=== PATIENT | male | born 1975 | race Caucasian/White ===

== ENCOUNTER 2018-11-14 10:17 | Observation (INO) | payer SELFPAY ==
[2018-11-14] VITALS (14 sets, daily range): BP systolic 115–137; BP diastolic 73–89; PULSE 78–110; RESP 14–20; TEMP 36.5–37.2; O2SAT 96–100; BMI 23.4; BMI 23.1
--- NOTE | 2018-11-14 10:23 | RAD_ITS ---
STUDY: X-RAY CHEST REASON FOR EXAM: Male, 43 years old. Chest pain TECHNIQUE: Single AP portable view of the chest. COMPARISON: None. FINDINGS: The lungs are clear and expanded. There is no demonstrated pleural abnormality. Normal size heart. Normal mediastinum and salvador. Normal visualized pulmonary arteries. Normal visualized aortic arch and descending thoracic aorta. Normal visualized thoracic spine. Normal visualized ribs, clavicles, and shoulders. There is no demonstrated abnormality of the visualized soft tissue structures of the upper abdomen. RAD/Chest 1 View (Portable) IMPRESSION: Normal x-ray examination of the chest. Electronically Signed: Hernesto Zazueta MD at 11:34 EDT Tel , Service support ,
--- NOTE | 2018-11-14 10:23 | EKG12_ITS ---
Test Reason : CP Blood Pressure : / mmHG Vent. Rate : 094 BPM Atrial Rate : 094 BPM P-R Int : 132 ms QRS Dur : 090 ms QT Int : 352 ms P-R-T Axes : 067 090 069 degrees QTc Int : 440 ms Normal sinus rhythm with sinus arrhythmia Rightward axis Low Voltage QRS (Limb Leads) Borderline ECG Confirmed by ANUJ KIDD, KINA ([id number]), scientific editor NAHEED LAWRENCE ([id number]) on 11/17/2018 3:15:37 PM Referred By: Azeem López Confirmed By:KINA LESLIE MD
--- NOTE | 2018-11-14 10:51 | ED.VIS.GEN ---
History of Present Illness Chief Complaint: Chest Pain Informant: Patient Onset: Today Context: Sudden Onset Timing: Continuous Current Severity: Moderate Maximum Severity: Moderate Narrative: The patient presents to the emergency department chest pain. He states he was in his normal state of health. He states he began to have left-sided chest tightness, shortness of breath, nausea. It radiated to his left arm. The patient does have a history of prior CO 5 years ago. He states he has 3 stents. He stopped following up with cardiology about 3 years ago. He only takes baby aspirin. He does smoke. He states he is been under significant amount of stress lately. He denies any recent exertional symptoms. Prior similar symptoms: Yes Recent Illness/Hospitalization: No Past Medical History - Allergies and Home Meds Allergies/Adverse Reactions: Allergies No Known Allergies Allergy (Verified 11/14/18 10:17) Prior records reviewed: Yes Past Medical History: - - Prior CO with stents Smoking Status: Current every day smoker Review of Systems General: Denies: Chills, Fever, Sweats Eyes: Denies: Visual changes - bilaterally, Diplopia ENT: Denies: Rhinorrhea, Sore throat Cardiovascular: Reports: Chest pain. Denies: Palpitations Respiratory: Denies: Dyspnea, Cough, Dyspnea on exertion Gastrointestinal: Denies: Abdominal pain, Nausea, Vomiting, Diarrhea, Melena, Hematochezia Genitourinary: Denies: Dysuria, Hematuria, Frequency Musculoskeletal: Denies: Back pain, Extremity Pain Skin: Denies: Rash, Wounds Neurological: Denies: Headache, Weakness, Numbness Physical Exam Vital Signs/Narrative: Vital Signs Temp Pulse Resp BP Pulse Ox 11/14/18 10:18 98.0 F 103 H 14 131/89 H 99 11/14/18 10:17 86 19 H Inital Vital Signs reviewed: Yes General: Well nourished, Well developed, No Acute Distress Head: Normocephalic, Atraumatic Eyes: Perrl, EOMI ENT: Moist mucous membranes, No rhinorrhea Neck: Supple, Nontender Cardiovascular: Regular rate, Regular rhythm, No murmurs Respiratory: No distress, CTA bilaterally, Chest nontender Abdomen: Soft, Nontender, Nondistended, Normal bowel sounds Back: Nontender, Normal Inspection Extremities: Nontender, No edema Skin: Normal color, No rash Neurological: Alert, Oriented x3, Cranial nerves II-XII grossly intact, Normal Strength, Normal Sensation Psychological: Normal affect, Normal Mood Diagnostic/Tx/Re-eval Chest X-Ray - ED: 1 View, 2 View, Read by ED Physician, Normal, Heart, Lungs, Mediastinum Clinical Impression(s) from Imaging Studies Chest X-Ray 11/14/18 10:23 IMPRESSION: Normal x-ray examination of the chest. Electronically Signed: Hernesto Zazueta MD at 11:34 EDT Tel , Service support , Abnormal Lab Results 11/14/18 11/14/18 10:40 10:40 WBC 10.0 RBC 5.52 Hgb 17.1 H Hct 50.4 MCV 91.3 MCH 31.0 MCHC 33.9 RDW Std Deviation 46.5 H RDW Coeff of Bravo 13.7 Plt Count 228 MPV 9.3 Immature Gran % (Auto) 0.500 Neut % (Auto) 75.6 H Lymph % (Auto) 13.3 L Putnam % (Auto) 7.9 Eos % (Auto) 2.0 Baso % (Auto) 0.7 Absolute Neuts (auto) 7.5 Absolute Lymphs (auto) 1.32 Nucleated RBC % 0 Sodium 138 Potassium 4.3 Chloride 107 Carbon Dioxide 28.0 Anion Gap 3 L BUN 6 L Creatinine 1.01 Estim Creat Clear Calc 85.10 Est GFR (MDRD) Af Amer 104 Est GFR (MDRD) Non-Af 86 BUN/Creatinine Ratio 5.9 L Glucose 106 Calcium 8.8 Troponin I < 0.015 - Rhythm Strip Rhythm Strip: Sinus Rhythm Rate: 90 Ectopy: None - EKG Initial EKG Interpretation: Sinus Rhythm, No Acute Injury Pattern Prior: No Prior - Medical Decision Making The patient presents with chest pain. He has been under significant amount of stress lately. His EKG does not show any evidence of acute ischemia. Patient was given aspirin and nitro. He did have improvement of his pain. Screening labs including cardiac enzymes are normal. The patient's history of prior CO and chest pain I do feel that he would benefit from a cardiac rule out. Patient was discussed with the hospitalist will be admitted for this time. Impression 1. Chest pain ED Disposition - Plan for ED Patient: Disposition: Home or Assisted Living
[2018-11-14 10:52] LABS: Absolute Lymphocyte Count 1.32 X10^3/uL (0.83-4.51); Absolute Neutrophil Count 7.5 X10^3/uL (2.0-7.7); Basophil# 0.07 X10^3/uL; Basophil% 0.7 % (0-1); Hematocrit 50.4 % (40-54); Hemoglobin 17.1 g/dL (13.0-16.5); Lymphocyte # 1.32 X10^3/ul (4.0); Lymphocyte % 13.3 % (19-41); Mean Corp Hgb Conc 33.9 g/dL (32-36); Mean Corpuscular Volume 91.3 fL (80-94); Mean Platelet Vol. 9.3 fl (6.2-12.0); Monocyte# 0.79 X10^3/uL; Monocyte% 7.9 % (0-10); NRBC Flagged by Analyzer 0 % (0-5); Neutrophil # 7.52 X10^3/uL (2.7-7.7); Neutrophil % 75.6 % (47-70); Platelet Count 228 K/mm3 (150-450); RBC Distribution Width CV 13.7 % (11.6-14.6); RBC Distribution Width SD 46.5 fl (35.1-43.9); Red Blood Count 5.52 M/mm3 (4.6-6.2)
[2018-11-14 11:10] LABS: Anion Gap 3 (5-15); BUN 6 mg/dL (7-18); BUN/Creat Ratio 5.9 RATIO (10-20); Calcium,Total 8.8 mg/dL (8.5-10.1); Chloride 107 mmol/L (98-107); Creatinine, Serum 1.01 mg/dL (0.70-1.30); EST Glomerular Filtration Rate 86 mL/min (>60); Est Glom Filt Rate - Afr Amer 104 mL/min (>60); Glucose 106 mg/dL (74-106); Potassium 4.3 mmol/L (3.5-5.1); Sodium Level 138 mmol/L (136-145)
[2018-11-14] MEDS: Aspirin 81 MG TAB.CHEW 324 MG PO (11:20)
[2018-11-14] MEDS: Nitroglycerin SL (ED/IMG/CATH) 0.4 MG TABLET SUBLINGUAL ×3 (11:22→11:32)
[2018-11-14] MEDS: 0.9% Normal Saline 1,000 ML 150 ML IV (11:28)
--- NOTE | 2018-11-14 11:46 | NURSING ---
BETHANYU OBS MARY ALEJANDRA
--- NOTE | 2018-11-14 12:37 | ED.RN ---
pt hal concerned that pt needs to see medical social consultant. Pt in agreement. Dr. Sheets notified.
--- NOTE | 2018-11-14 13:25 | EKG12_ITS ---
Test Reason : Blood Pressure : / mmHG Vent. Rate : 075 BPM Atrial Rate : 075 BPM P-R Int : 126 ms QRS Dur : 082 ms QT Int : 364 ms P-R-T Axes : 056 087 060 degrees QTc Int : 406 ms Normal sinus rhythm Normal ECG When compared with ECG of 14-NOV-2018 10:18, MANUAL COMPARISON REQUIRED, DATA IS UNCONFIRMED Confirmed by STEFAN KIDD, ANA PAULA ([id number]), book or script editor NAHEED LAWRENCE ([id number]) on 11/25/2018 10:41:49 AM Referred By: Azeem López Confirmed By:VASQUEZ AVILES MD
--- NOTE | 2018-11-14 17:30 | NURSING ---
Patient reports that he spoke with his fiance and her mother about going home instead of staying and feels that he is okay for discharge. Informed Dr. López of same. Dr. López spoke with patient concerning same. Patient did decide to stay and have stress test in the morning.
--- NOTE | 2018-11-14 19:33 | PCM.HP.STD ---
Problem List (1) Chest pain Status: Acute Qualifiers: Chest pain type: precordial pain Qualified Code(s): R07.2 - Precordial pain History of Present Illness Date of Admission: 11/14/18 Chief Complaint: chest pain The patient is a 43 year old M was seen and examined in the ER at [facility] with complaints of chest pain, this chest pain started earlier this morning while he was at rest, he described the chest pain as a pressure-like feeling, he did not tell this examiner it radiated into his neck or down his arm. 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 Patient states that he was never told he had significant damage from his ME, he quit following up with cardiology approximately 2 years ago, he also stated that he went off his prescribed medications because I felt better off the medications-patient states that he continue to take a baby aspirin a day. Patient denied any nausea, shortness of breath, or diaphoresis today. He states he was given a total of 3 nitroglycerin today which finally made his chest pain go away. Work-up in the emergency room included labs which showed a normal troponin, EKG showed no evidence of any ST-T wave elevation, chest x-ray was normal. Patient was placed in observation status on PCU, cardiac enzymes will be cycled, if they remain negative he will undergo an exercise nuclear stress test tomorrow morning. Patient states that if he has a positive stress test, he is not sure that he wants to stay in the hospital, he states that he would consider being discharged home and having an outpatient work-up. I also talked with the patient concerning his lack of taking cardiac medications as an outpatient, I recommended that he take a small dose of the statin as well as a small dose of the beta-jesica which he seemed to agree with. Additional note: After patient arrived in PCU, later on this afternoon, he told nursing that he preferred to be discharged home and do an outpatient work-up for his chest pain, I went back in and had a discussion with him about this decision and he changed his mind and agreed to stay and have his stress test performed. Past Medical History Allergies No Known Allergies Allergy (Verified 11/14/18 10:17) Home Medications: Ambulatory Orders Medication Instructions Recorded Aspirin E.C. [Ecotrin] 81 mg PO DAILY@0800 04/12/16 Multivitamin [Once Daily] 1 ea PO DAILY 11/14/18 Surgical History: herniorrhaphy, tonsillectomy, - - Insertion of 3 coronary artery stents 2014 Psychiatric History: No pertinent psych hx Lives: Spouse/ Significant Other Smoking Status: Current every day smoker Tobacco Use: Cigarettes Alcohol: None Drugs: None - *Family History Maternal History Items: - - Pancreatitis Paternal History Items: No pertinent history Review of Systems Constitutional: Denies: Anorexia, Chills, Fever, Night Sweats, Weakness, Weight Change Eyes: Denies: Blurred vision, Cataracts, Conjunctivae Inflammation, Double vision, Drainage HEENT: Denies: Difficulty Swallowing, Dysphasia, Ear Pain, Eye Pain, Hearing Changes, Nasal bleeding, Nasal Congestion, Post Nasal Drip Cardiovascular: Reports: Chest Pain, Chest Pressure, Heaviness. Denies: Claudication, Chest Tightness, Edema, Orthopnea, Palpitations, Paroxysmal Noc. Dyspnea Respiratory: Denies: Cough, Hemoptysis, Pleuritic Pain, Shortness of Breath, Shortness of breath at rest, Shortness of breath upon exertion, Sputum production Gastrointestinal: Denies: Abdominal Pain, Constipation, Diarrhea, Hematemesis, Hematochezia, Nausea, Melena, Vomiting Genitourinary: Denies: Dysuria, Frequency, Hematuria, Hesitancy, Incontinence, Nocturia, Urgency Musculoskeletal: Denies: Back Pain, Foot Pain, Hand Pain, Joint Pain, Joint stiffness, Joint swelling, Joint Tenderness, Leg Pain Skin: Denies: Dryness, Jaundice, Pruritis, Rash Neurological: Denies: Blurred vision, Double vision, Change in Speech, Slurred speech, Difficulty swallowing, Focal weakness, Headaches, Incoordination, Numbness, Tingling Psychiatric: Denies: Anxiety, Depression, Homicidal Ideations, Suicidal Ideations Endocrine: Denies: Change in Body Habitus, Heat/ Cold Intolerance, Polydipsia, Polyuria, Hx of Irradiation Hematologic/ Lymphatic: Denies: Adenopathy, Anemia, Easy Bruising, Easy Bleeding, Petechiae, Purpura VTE Information - Inpt Only VTE Present on Admission: No VTE Mechan Device Prophylaxis: None VTE Pharm Prophylaxis ordered?: No Reason prophylaxis not ordered:: Treatment Not Indicated Patient Problems: Active and Suspected Problems Chest pain (Acute) - Physical Exam General: Alert, Oriented x3, Cooperative, No apparent distress, Well developed HEENT: Atraumatic, PERRLA, EOMI, Normocephalic Oral: Moist Mucosa Neck: Supple, No JVD, Negative Carotid Bruits, Trachea Midline, Thyroid Normal Size and Texture Lungs: Clear to auscultation, Normal air movement, No rhonchi, No wheeze Cardiovascular: Regular rate, Regular Rhythm, Normal S1, Normal S2, No murmurs, PMI Normal, No rub noted Abdomen: Bowel Sounds Present, Soft, Non Tender, Non-Distended Extremities: No clubbing, No cyanosis, No edema, Capillary Refill Less than 3 Seconds Skin: No rashes, No breakdown Musculoskeletal: No Tenderness to Palpation of Joints or Extremities Neurological: Cranial nerves II-XII grossly intact, Neuro grossly intact, Sensory exam intact to light touch and pain, Coordination normal Psych/Mental Status: Normal Affect, Appropriate, Alert and oriented to time, place, person, mood and affect Vital Signs Temp Pulse Resp BP Pulse Ox 97.7 F L 80 16 115/88 H 96 11/14/18 17:38 11/14/18 19:09 11/14/18 17:38 11/14/18 17:38 11/14/18 17:38 Oxygen Flow Rate (L/min) 1 Oxygen Delivery Method Room Air Weight: 64.9 kg Body Mass Index (BMI) 23.1 Intake and Output for Last 24 Hours 11/12/18 11/13/18 11/14/18 23:59 23:59 23:59 Intake Total 442.5 / 442.5 Balance 442.5 / 442.5 Laboratory Tests Past 24 Hrs 11/14/18 11/14/18 11/14/18 10:40 10:40 13:50 WBC 10.0 RBC 5.52 Hgb 17.1 H Hct 50.4 MCV 91.3 MCH 31.0 MCHC 33.9 RDW Std Deviation 46.5 H RDW Coeff of Bravo 13.7 Plt Count 228 MPV 9.3 Immature Gran % (Auto) 0.500 Neut % (Auto) 75.6 H Lymph % (Auto) 13.3 L Tift % (Auto) 7.9 Eos % (Auto) 2.0 Baso % (Auto) 0.7 Absolute Neuts (auto) 7.5 Absolute Lymphs (auto) 1.32 Nucleated RBC % 0 Sodium 138 Potassium 4.3 Chloride 107 Carbon Dioxide 28.0 Anion Gap 3 L BUN 6 L Creatinine 1.01 Estim Creat Clear Calc 85.10 Est GFR (MDRD) Af Amer 104 Est GFR (MDRD) Non-Af 86 BUN/Creatinine Ratio 5.9 L Glucose 106 Calcium 8.8 Troponin I < 0.015 < 0.015 11/14/18 16:44 WBC RBC Hgb Hct MCV MCH MCHC RDW Std Deviation RDW Coeff of Bravo Plt Count MPV Immature Gran % (Auto) Neut % (Auto) Lymph % (Auto) Tift % (Auto) Eos % (Auto) Baso % (Auto) Absolute Neuts (auto) Absolute Lymphs (auto) Nucleated RBC % Sodium Potassium Chloride Carbon Dioxide Anion Gap BUN Creatinine Estim Creat Clear Calc Est GFR (MDRD) Af Amer Est GFR (MDRD) Non-Af BUN/Creatinine Ratio Glucose Calcium Troponin I < 0.015 Assessment/Plan All Active Problems Chest pain (Acute) #1 Chest pain in a patient with known coronary disease-he will be placed in the observation status on PCU, he will undergo an exercise nuclear stress test tomorrow if his enzymes remain negative. #2 noncompliance with medical regimen-I discussed this at length with the patient, I will prescribe medications at the time of discharge #3 coronary artery disease with history of coronary artery stents Code Visit OBSV E&M: 04239 Initial observation care L3
[2018-11-15 02:51] VITALS: PULSE 71
[2018-11-15 03:28] VITALS: BP 111/74; PULSE 70; RESP 18; TEMP 37.1; O2SAT 97
--- NOTE | 2018-11-15 05:55 | EKG12_ITS ---
Test Reason : AM EKG Blood Pressure : / mmHG Vent. Rate : 076 BPM Atrial Rate : 076 BPM P-R Int : 136 ms QRS Dur : 084 ms QT Int : 340 ms P-R-T Axes : 061 085 052 degrees QTc Int : 382 ms Normal sinus rhythm Normal ECG When compared with ECG of 14-NOV-2018 12:54, MANUAL COMPARISON REQUIRED, DATA IS UNCONFIRMED Confirmed by STEFAN KIDD, ANA PAULA ([id number]), clinical editor NAHEED LAWRENCE ([id number]) on 11/25/2018 10:42:17 AM Referred By: Azeem López Confirmed By:VASQUEZ AVILES MD
[2018-11-15 06:44] VITALS: BP 117/69; PULSE 78; RESP 18; TEMP 36.7; O2SAT 96
[2018-11-15 07:01] VITALS: PULSE 78
[2018-11-15 07:36] LABS: Cholesterol 191 mg/dL (200); High Density Lipoprotein 37 mg/dL; Triglycerides 80 mg/dL; Very Low Density Lipoprotein 16 mg/dL (5-40)
[2018-11-15 11:03] VITALS: BP 120/80; PULSE 90; RESP 18; TEMP 36.7; O2SAT 97
--- NOTE | 2018-11-15 11:21 | PCM.DC ---
- Discharge Diagnoses Current Active Problems: Current Active and Chronic Problems Chest pain (Acute) You will use the following diet at home:: No restrictions Your food should be the consistency of: Regular Your liquids should be the consistency of: Regular/Thin Discharge Activity: Return to Normal Activity Weight Bearing Status: Full weight bearing Additional Instructions: AVOID SMOKING Allergies/Adverse Reactions: Allergies No Known Allergies Allergy (Verified 11/14/18 10:17) Medications to take at Discharge Aspirin E.C. [Ecotrin] 81 mg PO DAILY@0800 04/12/16 Multivitamin [Once Daily] 1 ea PO DAILY 11/14/18 Atorvastatin Calcium [Lipitor] 20 mg PO DAILY #30 tab 11/15/18 Carvedilol 3.125 mg PO BID #60 tab 11/15/18 The following prescriptions were given: Carvedilol 3.125 mg PO BID #60 tab Prescription Printed Atorvastatin Calcium [Lipitor] 20 mg PO DAILY #30 tab Prescription Printed Primary Care Physician: Zelalem Wong DO [Primary Care Provider] - Please follow up with your Primary Care Physician in: IN 2 WEEKS Test Results: Test results from this visit will be discussed in further detail at your follow-up appointment, if applicable. Please Follow Up With: YOUR COMMUNITY SERVICE SPECIALIST When: IN 2 WEEKS
--- NOTE | 2018-11-15 11:58 | STRESSREP_ITS ---
Stress Test Report Date: 11-15-18 Procedure: Exercise tolerance test/imaging study Indications: Chest pain; CAD; PCI Consent: Per the patient Procedure: The patient exercised on a Erick protocol for 12 minutes completing Stage IV achieving a peak heart rate of 187 bpm (105 % predicted maximal heart rate) with a peak blood pressure 172/60 mmHg and a peak MET capacity of 13 METs. The baseline ECG demonstrated normal sinus rhythm. The peak exercise ECG demonstrated no obvious ECG changes. There was a rare PVC/ventricular couplet during exercise. The functional capacity was considered good. There was no complaint of chest discomfort during exercise or recovery. The examination was discontinued secondary to leg discomfort. Impression: 1. Technically adequate (percent predicted maximal heart rate greater than 85%) exercise tolerance test 2. Peak exercise ECG with no obvious ECG changes 3. There was a rare PVCs/ventricular couplet during exercise 4. Nuclear images pending Myocardial perfusion imaging study: Technique: The patient was injected with 12.0 mCi of technetium 99m Cardiolite and subsequently rest SPECT Cardiolite nuclear imaging was obtained in the horizontal long, vertical long, and short axis views. The patient exercised on a Erick protocol for 12 minutes completing Stage IV achieving a peak heart rate of 187 bpm (105 % predicted maximal heart rate) with a peak blood pressure 172/60 mmHg and a peak MET capacity of 13 METs. The patient was injected with 36.0 mCi of technetium 99m Cardiolite and subsequently stress SPECT Cardiolite nuclear imaging was obtained in the horizontal long, vertical long, and short axis views. A gated Cardiolite study at peak stress was obtained. Interpretation: Rest and stress SPECT Cardiolite nuclear imaging status post realignment, normalization, and attenuation correction, demonstrates the appearance of relative uniform tracer uptake and myocardial perfusion appearing within normal limits. There is end systolic thickening and brightening. The gated Cardiolite study demonstrates myocardial thickening and inward wall motion. The reported LVEF is 61 %. Impression: 1. Rest and stress SPECT Cardiolite nuclear imaging demonstrate relative uniform tracer uptake and myocardial perfusion appearing within normal limits. 2. The gated Cardiolite study reports an LVEF of 61 %. This note was generated with [employer] software. It may contain incorrect words, spelling, and punctuation that were not noted in checking the note before signing.
--- NOTE | 2018-11-15 17:42 | PCM.DC.SUM ---
Discharge Date and Diagnosis Date of Admission: 11/14/18 Date of Discharge: 11/15/18 - Primary Discharge Diagnosis #1 musculoskeletal chest pain #2 coronary artery disease #3 noncompliance with medical regimen #4 hyperlipidemia Hospital Course and Treatment Operations: None Procedures: Nuclear stress test Summary of Care Provided: The patient is a 43 year old M was seen in the emergency room at [facility] with chief complaint of precordial chest discomfort which started while he was at rest at home on the morning of 11/14/2018. He described the chest discomfort as pressure-like in nature, patient was given 3 nitroglycerin in the emergency room with resolution of the chest pain. Work-up in the emergency room included an EKG, chest x-ray, and labs all of which were unremarkable. Patient was placed in observation status on PCU, shortly after he arrived to PCU, patient briefly considered leaving AMA but I talked with the patient and he agreed to stay for further labs and testing. Patient's cardiac isoenzymes are unremarkable, on the morning of 11/15/2018, patient underwent a nuclear exercise stress test-patient went over 12 minutes on the treadmill on a Erick protocol without any evidence of chest pain or EKG changes, nuclear imaging did not show any reversible ischemic changes. Patient was to be discharged before the results of the nuclear stress test was available, I agreed to this and gave the patient additional medication and left a message on his telephone to call me so that I could pass on the results of his nuclear stress test. At the time of this dictation, patient had not called me back. 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 On 11/15/2018, patient was seen and examined: On examination he appeared in good health and spirits. Vital signs as documented. Skin warm and dry and without overt rashes. Neck without JVD. Lungs clear. Heart exam notable for regular rhythm, normal sounds and absence of murmurs, rubs or gallops. Abdomen unremarkable and without evidence of organomegaly, masses, or abdominal aortic enlargement. Extremities nonedematous. Neuro: Cranial nerves II through XII are grossly intact, no focal motor deficits were noted, sensation to light touch and pinprick intact. Psych: Patient is alert and oriented x3, he does not appear anxious or depressed On 11/15/2018, patient was seen and examined and felt to be in stable condition for discharge home-he was cautioned to stop smoking and he was cautioned to remain on his medications as directed-he had stopped prescribed medications as an outpatient years ago without consulting his physician. - Physical Exam Vital Signs Temp Pulse Resp BP Pulse Ox 98.0 F 90 18 120/80 97 11/15/18 11:03 11/15/18 11:03 11/15/18 11:03 11/15/18 11:03 11/15/18 11:03 Oxygen Flow Rate (L/min) 1 Oxygen Delivery Method Room Air Weight: 64.9 kg Body Mass Index (BMI) 23.1 Intake and Output for Last 24 Hours 11/13/18 11/14/18 11/15/18 23:59 23:59 23:59 Intake Total 442.5 / 442.5 240 / 240 Balance 442.5 / 442.5 240 / 240 Laboratory Tests Past 24 Hrs 11/15/18 05:25 Triglycerides 80 Cholesterol 191 LDL Cholesterol 138 H VLDL Cholesterol 16 HDL Cholesterol 37 L Discharge Activity: Return to Normal Activity Weight Bearing Status: Full weight bearing Home Medications: Medications to take at Discharge Aspirin E.C. [Ecotrin] 81 mg PO DAILY@0800 04/12/16 Multivitamin [Once Daily] 1 ea PO DAILY 11/14/18 Atorvastatin Calcium [Lipitor] 20 mg PO DAILY #30 tab 11/15/18 Carvedilol 3.125 mg PO BID #60 tab 11/15/18 Following Prescrptions Were Given to Patient: Carvedilol 3.125 mg PO BID #60 tab Prescription Printed Atorvastatin Calcium [Lipitor] 20 mg PO DAILY #30 tab Prescription Printed Primary Care Physician: Zelalem Wong DO [Primary Care Provider] - Please follow up with your Primary Care Physician in: IN 2 WEEKS Please Follow Up With: YOUR INTERNATIONAL FREIGHT FORWARDER When: IN 2 WEEKS Disposition: Home Minutes spent on discharge:: 30 Patient Condition:: Stable Medical Necessity - Tobacco Use Smoking Status: Current every day smoker Tobacco Use: Cigarettes Meaningful Use Info Meaningful Use Diagnoses (Choose all that apply): None applicable Code Visit OBSV E&M: 72957 Observation care discharge
== END 2018-11-15 11:22 | disposition home or self-care (01) ==
LOC: ED 10:50 → PCU 14:33
PROVIDERS: Admitting Provider Internal Medicine; Emergency Provider Emergency Medicine; Family Provider Family Medicine; PCP Family Medicine; Referring Provider Internal Medicine; Visit Provider Internal Medicine
DX: R07.89 Other chest pain (principal); R11.0 Nausea; I25.2 Old myocardial infarction; R06.02 Shortness of breath; F17.210 Nicotine dependence, cigarettes, uncomplicated; E78.5 Hyperlipidemia, unspecified; I25.10 Atherosclerotic heart disease of native coronary artery without angina pectoris; Z95.5 Presence of coronary angioplasty implant and graft; Z91.14 Patient's other noncompliance with medication regimen; Z79.82 Long term (current) use of aspirin
CPT/HCPCS: 36415; 71045; 78452; 80048; 80061; 84484; 85025; 93005; 93017; 96360; 96361; 99218; 99285; 99406; A9500; J7030; A4216; G0378

== ENCOUNTER 2022-12-20 08:57 | Emergency (ER) | payer SELFPAY ==
[2022-12-20 08:58] VITALS: BP 159/98; PULSE 89; RESP 14; TEMP 36.1; O2SAT 99; BMI 24.5
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
[2022-12-20 10:35] VITALS: BP 123/81; RESP 18
== END 2022-12-20 10:48 | disposition home or self-care (01) ==
PROVIDERS: Emergency Provider Emergency Medicine; Visit Provider Emergency Medicine
DX: S16.1XXA Strain of muscle, fascia and tendon at neck level, initial encounter (principal); F17.210 Nicotine dependence, cigarettes, uncomplicated; V49.40XA Driver injured in collision with unspecified motor vehicles in traffic accident, initial encounter; Y92.410 Unspecified street and highway as the place of occurrence of the external cause; Z95.5 Presence of coronary angioplasty implant and graft
CPT/HCPCS: 71046; 71120; 72125; 93005; 99284